=== PATIENT | female | born 1990 | race Caucasian/White ===

== ENCOUNTER 2018-04-22 15:27 | Inpatient (IN) | payer OTHER ==
[~2018-04-22] VITALS: Ht 162.6 cm; Wt 2.7 kg
[2018-05-13] MEDS ORDERED: PRENATAL PLUS1 EAC2 PO (12:02)
== END 2018-05-15 13:53 | DRG 788 ==
LOC: OB/GYN 05-13 07:00 → O/R 05-13 11:37 → OB/GYN 05-13 11:37
PROVIDERS: ADMIT Obstetrics & Gynecology Maternal & Fetal Medicine
PROC: 4A1HXCZ Monitoring of Products of Conception, Cardiac Rate, External Approach (ICD-10-PCS; 2018-05-13)
PROC: 4A033R1 Measurement of Arterial Saturation, Peripheral, Percutaneous Approach (ICD-10-PCS; 2018-05-13)
PROC: 10D00Z1 Extraction of Products of Conception, Low, Open Approach (ICD-10-PCS; principal; 2018-05-13 07:00)
DX: O32.8XX0 Maternal care for other malpresentation of fetus, not applicable or unspecified (principal); O34.13 Maternal care for benign tumor of corpus uteri, third trimester; D25.9 Leiomyoma of uterus, unspecified; Z3A.39 39 weeks gestation of pregnancy; Z37.0 Single live birth

== ENCOUNTER 2025-01-15 11:27 | Outpatient (CLI) | payer OTHER ==
[~2025-01-15 11:27] MED LIST: PRENATAL PLUS1 EAC2 PO
== END 2025-01-15 12:14 | disposition home or self-care (01) ==
LOC: NST 11:27
PROVIDERS: ATTEND Obstetrics & Gynecology
DX: Z34.83 Encounter for supervision of other normal pregnancy, third trimester (principal)